=== PATIENT | female | born 1955 | race Caucasian/White ===

== ENCOUNTER 2017-07-05 02:25 | Emergency (ER) | payer OTHER ==
[2017-07-05] MEDS: LORAZEPAM 1 MG TAB PO (03:24)
[2017-07-05] MEDS: ONDANSETRON (ODT) 4 MG TAB ODT (03:24)
[2017-07-05] MEDS: HYDROCODONE/APAP (5/325) TAB PO (03:24)
[2017-07-05] MEDS: ONDANSETRON 4 MG INJ IV (03:49)
[2017-07-05] MEDS: LORAZEPAM 2 MG INJ IV (03:51)
[2017-07-05] MEDS: morphine 2 MG INJ IV (03:51)
[2017-07-05] MEDS: niCARdipine-NS 0.1MG/ML DRIP 200 ML IV (05:08)
[2017-07-05] MEDS: SOD CHLORIDE 0.9% 1,000 ML IV (05:09)
[2017-07-05 05:28] LABS: ADD MAN DIFF? NO
[2017-07-05 05:32] LABS: WHITE BLOOD COUNT 14.1 10^3/ul (4.8-10.8)
[2017-07-05 05:32] LABS: BASOPHIL # 0.1 10^3/ul (0.0-0.1); BASOPHILS % 0.4 % (0.0-2.0); EOSINOPHILS # 0.2 10^3/ul (0.0-0.5); EOSINOPHILS % 1.3 % (0.0-7.0); HEMATOCRIT 34.6 % (37.0-47.0); HEMOGLOBIN 11.3 g/dl (12.0-16.0); LYMPHOCYTES # 1.2 10^3/ul (0.8-2.9); LYMPHOCYTES % 8.4 % (15.0-51.0); MEAN CORPUSCULAR HEMOGLOBIN 28.3 pg (29.0-33.0); MEAN CORPUSCULAR HGB CONC 32.7 g/dl (32.0-37.0); MEAN CORPUSCULAR VOLUME 86.5 fl (82.0-101.0); MEAN PLATELET VOLUME 10.6 fl (7.4-10.4); MONOCYTE # 0.5 10^3/ul (0.3-0.9); MONOCYTES % 3.7 % (0.0-11.0); NEUTROPHIL # 12.1 10^3/ul (1.6-7.5); NEUTROPHILS % 85.7 % (39.0-77.0); PLATELET COUNT 187 10^3/UL (140-415); RED CELL DISTRIBUTION WIDTH 13.9 % (11.5-14.5)
[2017-07-05 05:51] LABS: ALANINE AMINOTRANSFERASE 20 IU/L (13-69); ALBUMIN 4.2 g/dl (3.3-4.9); ALBUMIN/GLOBULIN RATIO 1.35; ALKALINE PHOSPHATASE 60 IU/L (42-121); ANION GAP 19 (8-16); ASPARTATE AMINO TRANSFERASE 27 IU/L (15-46); BILIRUBIN,INDIRECT 0.2 mg/dl (0-1.1); BILIRUBIN,TOTAL 0.2 mg/dl (0.2-1.3); BLOOD UREA NITROGEN 18 mg/dl (7-20); CALCIUM 9.6 mg/dl (8.4-10.2); CARBON DIOXIDE 23 mmol/L (21-31); CHLORIDE 108 mmol/L (97-110); CREATININE 0.71 mg/dl (0.44-1.00); GLUCOSE 129 mg/dl (70-220); LIPASE 40 U/L (23-300); POTASSIUM 3.6 mmol/L (3.5-5.1); SODIUM 146 mmol/L (135-144); TOTAL PROTEIN 7.3 g/dl (6.1-8.1)
[2017-07-05 06:04] LABS: INR 0.94; PROTIME 12.7 Sec (11.9-14.9)
[2017-07-05 06:05] LABS: PARTIAL THROMBOPLASTIN TIME 25.8 Sec (25.0-35.0)
[2017-07-05 06:14] LABS: TROPONIN-I < 0.012 ng/ml (0.00-0.12)
[2017-07-05] MEDS: IOHEXOL 300MG/ML 150 ML BTL (06:26)
[2017-07-05] MEDS: SOD CHLORIDE 0.9% 100 ML (06:26)
== END 2017-07-05 08:00 | disposition short-term general hospital (02) ==
LOC: FTE 02:25 → E/R 08:00
DX: I60.9 Nontraumatic subarachnoid hemorrhage, unspecified (principal); I16.1 Hypertensive emergency; M54.2 Cervicalgia; R40.2132 Coma scale, eyes open, to sound, at arrival to emergency department; R40.2252 Coma scale, best verbal response, oriented, at arrival to emergency department; R40.2362 Coma scale, best motor response, obeys commands, at arrival to emergency department; Z87.891 Personal history of nicotine dependence
CPT/HCPCS: 36415; 70450; 70496; 70498; 71045; 72125; 80053; 83690; 84484; 85025; 85610; 85730; 96374; 96375; 99291-25